=== PATIENT | male | born 1995 | race Caucasian/White ===

== ENCOUNTER → 2020-09-24 | Day surgery (SDC) | payer OTHER | END | disposition home or self-care (01) | LOC: OR 11:35 | DX: R35.0 Frequency of micturition (principal); R39.11 Hesitancy of micturition; R39.15 Urgency of urination; N53.12 Painful ejaculation; R39.16 Straining to void; F41.9 Anxiety disorder, unspecified; Z80.42 Family history of malignant neoplasm of prostate | CPT/HCPCS: J7040 ==